=== PATIENT | male | born 1975 | race Caucasian/White ===

== ENCOUNTER 2018-05-19 15:32 | Emergency (ER) | payer MEDICAID, SELFPAY ==
[2018-05-19 15:33] VITALS: BP 156/107; PULSE 70; RESP 16; TEMP 36.6; O2SAT 98; BMI 29.5
--- NOTE | 2018-05-19 15:56 | CT_ITS ---
STUDY: CT BRAIN WITHOUT CONTRAST REASON FOR EXAM: Male, 43 years old. Migraine headache x2 days RADIATION DOSAGE (If Supplied By Facility): CTDIvol = ( 44.99 ) mGy, DLP = ( 863.60 ) mGycm TECHNIQUE: Transaxial CT imaging of the brain was performed without administration of intravenous contrast material. Individualized dose optimization techniques were used for this CT. COMPARISON: None. FINDINGS: Normal soft tissue structures. Normal calvarium. Normal size ventricles and extra-axial spaces for the patient's age. Normal white matter tracts of the cerebral hemispheres. Normal basal ganglia and thalami. Normal brainstem. Normal cerebellum. There is no intracranial hemorrhage. There are no findings of an acute ischemic infarction. Normal visualized paranasal sinuses. CT/Brain/Head without Contrast IMPRESSION: Normal unenhanced CT scan of the brain. Electronically Signed: Raghu Zambrano MD at 17:18 EST , Service support ,
--- NOTE | 2018-05-19 16:31 | ED.VISSUMM ---
- ER Visit Summary Date of Service: 05/19/18 Chief Complaint: Headache History of Present Illness: The patient is a 43 M presents with a headache that has been getting worse over the past 2 days. Patient states he has a history of migraine headaches but has not had one in several years. Patient states this does feel similar to prior migraine headaches. Patient states the pain is over the right frontal area. Patient admits to some nausea but denies any vomiting. Patient also admits to some sinus pressure over the right frontal maxillary sinuses. Patient admits to some blurred vision and photophobia. Patient denies any loss of vision. Patient states he took [id number] migraine medicine yesterday which helped however today it did not help. Physical Examination: Vital signs are stable. Patient is afebrile. Patient is in no acute distress. Oral mucosa is pink and moist. Neck is supple. Trachea is midline. There is no JVD noted. Heart was regular rate and rhythm. Lungs are clear and equal bilateral. Abdomen is soft. Bowel sounds are normal. There is no tenderness. There is no guarding noted. Skin is warm dry. Cranial nerves II through XII are intact. There are no focal motor or sensory deficits noted. The remaining physical exam is within normal limits. Test Results: Since it is been several years since the patient has had a migraine headache, CT scan of the brain was obtained. Emergency Department Course and Treatment: Patient was given IV fluids, Reglan, and Benadryl. Patient states that his headache has resolved. Patient was instructed to rest in a dark quiet room. Patient was instructed to follow-up with his primary care physician in 5-7 days. Patient understood and was agreeable with the plan. All questions were answered. Disposition: Discharge home Impression: Migraine headache This note was generated with [employer] software. It may contain incorrect words, spelling, and punctuation that were not noted in review of the chart prior to signing ED Disposition - Plan for ED Patient: Disposition: Home or Assisted Living Diagnosis: Migraine headache Instructions: ED Headache Migraine
[2018-05-19] MEDS: Metoclopramide 10 MG/2 ML Vial IV (16:47)
[2018-05-19] MEDS: DiphenhydrAMINE 50 MG/ML Syringe 25 MG IV (16:47)
[2018-05-19] MEDS: 0.9% Normal Saline 1,000 ML 999 ML IV (16:47)
[2018-05-19] MEDS: Ketorolac 30 MG/ML Syringe IV (18:37)
[2018-05-19 19:26] VITALS: BP 149/99; PULSE 69; RESP 18; O2SAT 95
== END 2018-05-19 19:31 | disposition home or self-care (01) ==
PROVIDERS: Emergency Provider Emergency Medicine; Family Provider Family Medicine; PCP Family Medicine
DX: G43.909 Migraine, unspecified, not intractable, without status migrainosus (principal)
CPT/HCPCS: 70450; 96374; 96375; 99284; J7030; A4216

== ENCOUNTER 2024-10-02 14:21 | Emergency (ER) | payer SELFPAY ==
[2024-10-02 14:23] VITALS: BP 146/101; PULSE 78; RESP 18; TEMP 36.2; O2SAT 97; BMI 34.4
[2024-10-02 15:20] LABS: Hematocrit 44.3 % (40-54); Hemoglobin 15.6 g/dL (13.0-16.5); Immature Granulocytes Count 0.030 X10^3/uL (0.0-0.0); Mean Corp Hgb Conc 35.2 g/dL (32-36); Mean Corpuscular Volume 87.5 fL (80-94); Mean Platelet Vol. 9.7 fl (6.2-12.0); NRBC Flagged by Analyzer 0 % (0-5); Platelet Count 276 K/mm3 (150-450); RBC Distribution Width CV 12.5 % (11.6-14.6); RBC Distribution Width SD 40.1 fl (35.1-43.9); Red Blood Count 5.06 M/mm3 (4.6-6.2); White Blood Count 8.7 K/mm3 (4.4-11.0)
[2024-10-02 15:45] LABS: Lipase 27 U/L (13-75)
[2024-10-02 15:52] LABS: AST(SGOT) 23 U/L (<=37); Alanine Aminotransfer ALT/SGPT 42 U/L (<=46); Albumin, Serum 4.5 g/dL (3.5-5.0); Alkaline Phosphatase 56 U/L (40-129); Anion Gap 12 (5-15); BUN 16 mg/dL (4-19); BUN/Creat Ratio 15.9 RATIO (10-20); Calcium,Total 9.1 mg/dL (7.6-11.0); Carbon Dioxide 21.4 mmol/L (21.0-32.0); Chloride 105 mmol/L (98-108); Estimated Creatinine Clearance 110.43 ml/min (50-250); Globulin 2.8 g/dL (2.2-4.2); Glucose 95 mg/dL (70-99); Potassium 4.0 mmol/L (3.3-5.1)
[2024-10-02 16:21] VITALS: BP 163/109; PULSE 73; RESP 15; TEMP 36.7; O2SAT 96
[2024-10-02 17:00] LABS: Mucous, Urine 0 SEEN /hpf (<or=2+)
[2024-10-02 17:45] LABS: Color, Urine Straw (Yellow); Glucose, Dipstick Normal (Normal); Ketone-Dipstick Negative (Negative); Leukocyte Esterase-Dipstick Negative /ul (Negative); Nitrite-Dipstick Negative (Negative); Occult Blood-Urine Negative /ul (Negative); Protein-Dipstick Negative (Negative); Specific Gravity, Urine 1.010 (1.002-1.030); Urine Bilirubin Dipstick Negative (Negative)
[2024-10-02 18:08] VITALS: BP 156/110; PULSE 74; RESP 18; TEMP 36.9; O2SAT 74
[2024-10-02 18:14] LABS: Red Blood Cells-Urine 0-5 SEEN /hpf (0-5); Squamous Epithelial Cells - UA 0-5 SEEN /hpf (0-5)
== END 2024-10-02 18:10 | disposition home or self-care (01) ==
PROVIDERS: Emergency Provider Emergency Medicine; PCP Family Medicine; Visit Provider Emergency Medicine
DX: K42.9 Umbilical hernia without obstruction or gangrene (principal)
CPT/HCPCS: 74177; 80053; 81001; 83690; 85025; 99282; Q9967; A4216